=== PATIENT | male | born 1955 | race Caucasian/White ===

== ENCOUNTER 2019-12-22 09:59 | Inpatient (IN) | payer BC ==
[~2019-12-22] VITALS: Ht 172.7 cm; Wt 119.3 kg
[2019-12-22 10:29] LABS: BASOPHILS % (AUTO) 0.3 % (0.0-5.0); EOSINOPHILS % (AUTO) 0.1 % (0.0-8.0); HEMATOCRIT 54.9 % (42-54); LYMPHOCYTES % (AUTO) 6.1 % (21.0-51.0); MEAN CORPUSCULAR HEMOGLOBIN 31.8 pg (27.0-33.0); MEAN CORPUSCULAR HGB CONC 34.6 g/dL (32.0-36.0); MEAN CORPUSCULAR VOLUME 91.8 fL (79-99); MONOCYTES % (AUTO) 7.8 % (3.0-13.0); NEUTROPHILS % (AUTO) 85.1 % (40.0-77.0); PLATELET COUNT (AUTO) 272 K/uL (130-400); RED BLOOD CELL COUNT(AUTO) 5.98 MIL/uL (4.50-6.20)
[2019-12-22] MEDS ORDERED: ALBUTEROL INHALER 90MCG/INH IH ONE (10:32)
[2019-12-22 10:37] LABS: CREATININE 1.2 mg/dL (0.5-1.5); POTASSIUM 4.5 mmol/L (3.5-5.1)
[2019-12-22 10:38] LABS: INR 0.92 (0.85-1.15)
[2019-12-22 11:01] LABS: ALBUMIN 3.9 g/dL (3.5-5.0); BILIRUBIN,TOTAL 0.7 mg/dL (0.2-1.0); TOTAL PROTEIN, SERUM 7.9 g/dL (6.0-8.3)
[2019-12-22 11:02] LABS: APPEARANCE,URINE Clear (CLEAR); BILIRUBIN,URINE Negative (NEGATIVE); COLOR,URINE Yellow (YELLOW); GLUCOSE, URINE (UA) >=1000 mg/dL (NEGATIVE); KETONES,URINE 40 mg/dL (NEGATIVE); LEUKOCYTE ESTERASE ,URINE Negative (NEGATIVE); NITRATE,URINE Negative (NEGATIVE); OCCULT BLOOD,URINE Negative (NEGATIVE); PROTEIN,URINE Negative (NEGATIVE)
[2019-12-22 11:14] LABS: TROPONIN I 3.49 ng/mL (0.00-0.06)
[2019-12-22] MEDS ORDERED: ENOXAPARIN SODIUM 100 MG/1 ML SQ ONE (11:20)
[2019-12-22] MEDS ORDERED: ASPIRIN 325MG EC TAB 325 MG TABLET.DR PO ONE (11:27)
[2019-12-22] MEDS ORDERED: METOPROLOL TARTRATE 1 MG/ML 5ML VIAL IV ONE (11:27)
[2019-12-22] MEDS ORDERED: CLOPIDOGREL BISULFATE 75 MG TAB ONE (11:27)
[2019-12-22 11:38] LABS: BACTERIA,URINE None Seen /HPF (None Seen); RBC,URINE None Seen /HPF (0-1); WBC,URINE None Seen /HPF (0-1)
[2019-12-22 11:39] LABS: SQUAMOUS EPITHELIAL CELL,UR 0-2 /HPF (0-2)
[2019-12-22] MEDS ORDERED: ATORVASTATIN CALCIUM 40 MG TABLET ONE (12:11)
[2019-12-22] MEDS ORDERED: METOPROLOL TARTRATE 25 MG TAB ONE (12:11)
[2019-12-22 12:29] LABS: BASOPHILS % (AUTO) 0.2 % (0.0-5.0); EOSINOPHILS % (AUTO) 0.1 % (0.0-8.0); HEMATOCRIT 51.7 % (42-54); LYMPHOCYTES % (AUTO) 7.1 % (21.0-51.0); MEAN CORPUSCULAR HEMOGLOBIN 31.2 pg (27.0-33.0); MEAN CORPUSCULAR HGB CONC 34.2 g/dL (32.0-36.0); MONOCYTES % (AUTO) 7.9 % (3.0-13.0); NEUTROPHILS % (AUTO) 84.4 % (40.0-77.0); PLATELET COUNT (AUTO) 278 K/uL (130-400); RED BLOOD CELL COUNT(AUTO) 5.68 MIL/uL (4.50-6.20); RED CELL DISTRIBUTION WIDTH 12.1 % (11.0-15.5); WHITE BLOOD COUNT (AUTO) 14.6 K/uL (4.8-10.8)
[2019-12-22 12:36] LABS: CHOLESTEROL 234 mg/dL (<200); HDL CHOLESTEROL 125 mg/dL (29-71); LDL DIRECT 179 mg/dL (0-99); TRIGLYCERIDES 107 mg/dL (30-200)
[2019-12-22] MEDS ORDERED: HEPARIN SODIUM 1000UNIT/ML 10ML VIAL ONE ×2 (13:04→15:50)
[2019-12-22] MEDS ORDERED: IOHEXOL 350 MG/ML 100ML INFUS..BTL IV ONE (13:04)
[2019-12-22] MEDS ORDERED: SODIUM BICARB 50MEQ 50ML VIAL ONE ×5 (13:04→20:47)
[2019-12-22] MEDS ORDERED: NITROGLYCERIN 2 MG/VIAL VIAL IV ONE (13:04)
[2019-12-22] MEDS ORDERED: MEPERIDINE-PF 25 MG/ML SYG ONE (13:05)
[2019-12-22] MEDS ORDERED: IOHEXOL-350 50ML VIAL IV ONE (13:05)
[2019-12-22] MEDS ORDERED: LIDOCAINE HCL 2% 20ML ONE (13:05)
[2019-12-22] MEDS ORDERED: MIDAZOLAM HCL 1 MG/ML 2ML VIAL ONE ×2 (13:05→15:51)
[2019-12-22] MEDS ORDERED: FUROSEMIDE 10 MG/ML 4ML VIAL ONE ×2 (13:47→15:03)
[2019-12-22] MEDS ORDERED: HEPARIN 25000 UNITS/250 ML D5W 250 ML IV ONE (14:04)
[2019-12-22] MEDS ORDERED: MIDAZOLAM HCL 1 MG/ML 2ML VIAL IVP PRN (15:00)
[2019-12-22] MEDS ORDERED: MORPHINE SULFATE 5 MG/ML VIAL IV PRN ×2 (15:00)
[2019-12-22] MEDS ORDERED: ONDANSETRON HCL 4 MG/2 ML VIAL IVP PRN (15:00)
[2019-12-22] MEDS ORDERED: NITROGLYCERIN 1GM/1 INCH PACKET TD SCH (15:00)
[2019-12-22] MEDS ORDERED: SODIUM CHLORIDE 0.9% 500ML 500 ML IV SCH (15:17)
[2019-12-22] MEDS ORDERED: SODIUM CHLORIDE 0.9% 1000ML 1,000 ML IV SCH (15:30)
[2019-12-22] MEDS ORDERED: INSULIN REGULAR, HUMAN 3ML 100 UNIT in SODIUM CHLORIDE 0.9% 99 ML IV SCH ×2 (15:30)
[2019-12-22] MEDS ORDERED: EPINEPHRINE 10 MG in DEXTROSE 5%-WATER 250 ML IV PRN (15:30)
[2019-12-22] MEDS ORDERED: MAGNESIUM 2GM PREMIX 50ML 50 ML IV PRN (15:30)
[2019-12-22] MEDS ORDERED: GLUCAGON 1MG KIT 1 MG ML IM PRN (15:30)
[2019-12-22] MEDS ORDERED: DEXTROSE 50%-WATER 50 ML DISP.SYRIN IV PRN (15:30)
[2019-12-22] MEDS ORDERED: AMINOCAPROIC ACID 15,000 MG in SODIUM CHLORIDE 0.9% 250 ML IV SCH (15:30)
[2019-12-22] MEDS ORDERED: POTASSIUM PHOS 15 mMOL+NS250ML 250 ML IV PRN (15:30)
[2019-12-22] MEDS ORDERED: SODIUM CHLORIDE 0.9% 250 ML IV PRN (15:30)
[2019-12-22] MEDS ORDERED: NOREPINEPHRINE 4MG/NS 250ML 250 ML IV PRN (15:30)
[2019-12-22] MEDS ORDERED: ALBUMIN (HUMAN) 5% 250 ML IV PRN (15:30)
[2019-12-22] MEDS ORDERED: ONDANSETRON HCL 4 MG/2 ML VIAL IV PRN (15:30)
[2019-12-22] MEDS ORDERED: ACETAMINOPHEN 325 MG TAB PO PRN (15:30)
[2019-12-22] MEDS ORDERED: SODIUM CHLORIDE 0.9% 10 ML VIAL IVP PRN (15:30)
[2019-12-22] MEDS ORDERED: TRAMADOL HCL 50 MG TABLET PO PRN ×2 (15:30)
[2019-12-22] MEDS ORDERED: NITROGLYCERIN 50 MG/D5% WATER 250 BOT IV SCH (15:30)
[2019-12-22] MEDS ORDERED: ACETAMINOPHEN 650 MG SUPPOSITORY RC PRN (15:30)
[2019-12-22] MEDS ORDERED: MORPHINE SULFATE 2 MG/ML 1ML SYG IV PRN (15:30)
[2019-12-22] MEDS ORDERED: MORPHINE SULFATE 4 MG/1ML SYG IV PRN (15:30)
[2019-12-22 15:38] LABS: HEMATOCRIT 51.2 % (42-54); MEAN CORPUSCULAR HEMOGLOBIN 31.4 pg (27.0-33.0); MEAN CORPUSCULAR HGB CONC 34.6 g/dL (32.0-36.0); MEAN CORPUSCULAR VOLUME 90.9 fL (79-99); RED BLOOD CELL COUNT(AUTO) 5.63 MIL/uL (4.50-6.20); WHITE BLOOD COUNT (AUTO) 14.5 K/uL (4.8-10.8)
[2019-12-22] MEDS ORDERED: EPINEPHRINE 1 MG/ML 30ML VIAL IJ ONE (15:39)
[2019-12-22] MEDS ORDERED: NITROGLYCERIN 50 MG/D5% WATER 1 BOT ONE (15:39)
[2019-12-22] MEDS ORDERED: AMINOCAPROIC ACID 250 MG/ML 20 ML VIAL IV ONE (15:50)
[2019-12-22] MEDS ORDERED: LIDOCAINE PF 2% 5ML ABBOJECT ONE (15:50)
[2019-12-22] MEDS ORDERED: PROPOFOL 10 MG/ML 20ML VIAL IV ONE (15:50)
[2019-12-22] MEDS ORDERED: PROTAMINE SULFATE 10 MG/ML 25ML VIAL IV ONE (15:50)
[2019-12-22] MEDS ORDERED: ESMOLOL HCL 10 MG/ML 10 ML VIAL ONE (15:50)
[2019-12-22] MEDS ORDERED: EPINEPHRINE 1 MG/ML AMPULE ONE (15:50)
[2019-12-22] MEDS ORDERED: FENTANYL CITRATE PF 50 MCG/1 ML 20ML VIAL IJ ONE (15:50)
[2019-12-22] MEDS ORDERED: NOREPINEPHRINE BITARTRATE 1 MG/1 ML ML IV ONE (15:50)
[2019-12-22] MEDS ORDERED: ROCURONIUM 10MG/1ML SYR 10 MG/ML ML ONE (15:51)
[2019-12-22] MEDS ORDERED: KETAMINE HCL 50MG/ML 10ML VIAL IJ ONE (15:53)
[2019-12-22 15:55] LABS: INR 0.98 (0.85-1.15); PARTIAL THROMBOPLASTIN TIME 33.1 SEC (26.3-35.5); PROTHROMBIN TIME 10.6 SEC (9.6-11.6)
[2019-12-22 15:55] LABS: HEMOGLOBIN A1C 7.3 % (4.0-6.0)
[2019-12-22] MEDS ORDERED: CEFUROXIME SODIUM 1.5 GM VIAL ONE (16:07)
[2019-12-22 16:30] LABS: ABG BASE EXCESS -8.1 mmol/L (-2.0-3.0); ABG HCO3 17.5 mmol/L (21.0-28.0); ABG OXYGEN SATURATION 98.5 % (95.0-99.0); ABG PCO2 37 mmHg (35-48)
[2019-12-22] MEDS ORDERED: CEFAZOLIN SODIUM 1 GM VIAL ONE (16:34)
[2019-12-22] MEDS ORDERED: PAPAVERINE HCL 30 MG/ML 2ML VIAL ONE (16:34)
[2019-12-22 17:22] LABS: ABG BASE EXCESS -6.4 mmol/L (-2.0-3.0); ABG HCO3 19.6 mmol/L (21.0-28.0); ABG PCO2 41 mmHg (35-48)
[2019-12-22] MEDS ORDERED: SODIUM BICARB 8.4% 50ML SYRINGE ONE (17:23)
[2019-12-22 18:31] LABS: ABG BASE EXCESS -9.6 mmol/L (-2.0-3.0); ABG HCO3 16.4 mmol/L (21.0-28.0); ABG OXYGEN SATURATION 98.1 % (95.0-99.0); ABG PCO2 36 mmHg (35-48)
[2019-12-22] MEDS ORDERED: EPHEDRINE SULFATE 50 MG/ML AMPULE ONE (18:56)
[2019-12-22 19:04] VITALS: BP 127/77
[2019-12-22 19:25] LABS: MEAN CORPUSCULAR HEMOGLOBIN 31.5 pg (27.0-33.0); MEAN CORPUSCULAR HGB CONC 33.5 g/dL (32.0-36.0); MEAN CORPUSCULAR VOLUME 94.1 fL (79-99); RED BLOOD CELL COUNT(AUTO) 4.89 MIL/uL (4.50-6.20); RED CELL DISTRIBUTION WIDTH 12.1 % (11.0-15.5); WHITE BLOOD COUNT (AUTO) 28.4 K/uL (4.8-10.8)
[2019-12-22] MEDS ORDERED: PROPOFOL 1000 MG/100 ML 100 ML IV ONE ×2 (19:35→22:23)
[2019-12-22 19:38] LABS: ABG BASE EXCESS -10.3 mmol/L (-2.0-3.0); ABG OXYGEN SATURATION 93.7 % (95.0-99.0); ABG PCO2 48 mmHg (35-48)
[2019-12-22 19:39] LABS: CREATININE 1.5 mg/dL (0.5-1.5); POTASSIUM 3.9 mmol/L (3.5-5.1)
[2019-12-22] MEDS ORDERED: POTASSIUM CHLORIDE 20MEQ/100ML 100 ML IV ONE (19:39)
[2019-12-22 19:42] LABS: MAGNESIUM 1.6 mg/dL (1.80-2.40); PHOSPHORUS 6.8 mg/dL (2.5-4.9)
[2019-12-22 19:45] LABS: INR 1.02 (0.85-1.15); PARTIAL THROMBOPLASTIN TIME 23.6 SEC (26.3-35.5)
[2019-12-22] MEDS ORDERED: NOREPINEPHRINE BITARTRATE 8 MG/NS 250ML IV SCH ×2 (19:45)
[2019-12-22] MEDS: SODIUM BICARB 50MEQ 50ML VIAL IV PRN ×3 (19:53→21:45)
[2019-12-22] MEDS: POTASSIUM CHLORIDE 20MEQ/100ML 100 ML IV PRN (19:54)
[2019-12-22] MEDS ORDERED: MAGNESIUM 2GM PREMIX 50ML 50 ML IV ONE (19:58)
[2019-12-22 20:00] VITALS: BP 91/56
[2019-12-22] MEDS ORDERED: ALBUMIN (HUMAN) 5% 250 ML IV ONE (20:10)
[2019-12-22] MEDS: PROPOFOL 1000 MG/100 ML 100 ML IV PRN (20:17)
[2019-12-22 20:45] LABS: ABG BASE EXCESS -5.6 mmol/L (-2.0-3.0); ABG HCO3 20.8 mmol/L (21.0-28.0); ABG OXYGEN SATURATION 96.4 % (95.0-99.0); ABG PCO2 44 mmHg (35-48)
[2019-12-22] MEDS ORDERED: CALCIUM GLUCONATE 1 GM/10 ML VIAL IV ONE ×2 (20:59→21:40)
[2019-12-22 21:00] VITALS: BP 98/54
[2019-12-22] MEDS ORDERED: FAMOTIDINE/PF 20 MG/2 ML VIAL IV SCH (21:00)
[2019-12-22] MEDS: CALCIUM GLUCONATE 1 GM in SODIUM CHLORIDE 0.9% 50 ML IV PRN ×2 (21:02→21:45)
[2019-12-22 21:30] LABS: ABG BASE EXCESS -1.4 mmol/L (-2.0-3.0); ABG OXYGEN SATURATION 98.1 % (95.0-99.0); ABG PCO2 43 mmHg (35-48)
[2019-12-22] MEDS ORDERED: 1/2 NORMAL SALINE 1,000 ML IV ONE (21:38)
[2019-12-22] MEDS ORDERED: POTASSIUM CHLORIDE 20MEQ/100ML 200 ML IV ONE (21:39)
[2019-12-22] MEDS: FAMOTIDINE/PF 20 MG/2 ML VIAL IV SCH (21:44)
[2019-12-22 22:00] VITALS: BP 101/58
[2019-12-22 22:28] LABS: ABG BASE EXCESS -1.9 mmol/L (-2.0-3.0); ABG HCO3 23.1 mmol/L (21.0-28.0); ABG OXYGEN SATURATION 97.7 % (95.0-99.0); ABG PCO2 40 mmHg (35-48)
[2019-12-22 23:00] VITALS: BP 107/55
[2019-12-23] VITALS (21 sets, daily range): BP systolic 91–166; BP diastolic 51–76
[2019-12-23 00:06] LABS: ABG BASE EXCESS -2.7 mmol/L (-2.0-3.0); ABG HCO3 21.9 mmol/L (21.0-28.0); ABG OXYGEN SATURATION 96.2 % (95.0-99.0); ABG PCO2 38 mmHg (35-48)
[2019-12-23] MEDS ORDERED: POTASSIUM CHLORIDE 20MEQ/100ML 200 ML IV ONE (00:07)
[2019-12-23] MEDS: POTASSIUM CHLORIDE 20MEQ/100ML 100 ML IV PRN ×8 (00:19→15:47)
[2019-12-23] MEDS: SODIUM BICARB 50MEQ 50ML VIAL IV PRN ×2 (00:19→01:26)
[2019-12-23] MEDS ORDERED: CEFAZOLIN SODIUM 1 GM VIAL ONE ×4 (00:22→16:38)
[2019-12-23] MEDS: CEFAZOLIN SODIUM 1 GM VIAL IV SCH ×3 (00:23→18:53)
[2019-12-23] MEDS ORDERED: PROPOFOL 1000 MG/100 ML 100 ML IV ONE (01:04)
[2019-12-23] MEDS ORDERED: POTASSIUM CHLORIDE 20MEQ/100ML 100 ML IV ONE (01:07)
[2019-12-23] MEDS ORDERED: SODIUM CHLORIDE 0.9% 100 ML IV ONE (01:10)
[2019-12-23 01:14] LABS: ABG BASE EXCESS -1.7 mmol/L (-2.0-3.0); ABG HCO3 22.3 mmol/L (21.0-28.0); ABG OXYGEN SATURATION 94.1 % (95.0-99.0); ABG PCO2 36 mmHg (35-48)
[2019-12-23] MEDS ORDERED: CALCIUM GLUCONATE 1 GM/10 ML VIAL IV ONE ×3 (01:29→01:46)
[2019-12-23] MEDS: PROPOFOL 1000 MG/100 ML 100 ML IV PRN ×2 (01:30→05:50)
[2019-12-23 03:00] LABS: ABG BASE EXCESS 2.5 mmol/L (-2.0-3.0); ABG HCO3 26.9 mmol/L (21.0-28.0); ABG OXYGEN SATURATION 94.1 % (95.0-99.0); ABG PCO2 41 mmHg (35-48)
[2019-12-23 05:15] LABS: ABG BASE EXCESS 7.4 mmol/L (-2.0-3.0); ABG HCO3 31.5 mmol/L (21.0-28.0); ABG PCO2 42 mmHg (35-48)
[2019-12-23 05:23] LABS: HEMATOCRIT 38.9 % (42-54); MEAN CORPUSCULAR HGB CONC 34.7 g/dL (32.0-36.0); MEAN CORPUSCULAR VOLUME 92.2 fL (79-99); RED BLOOD CELL COUNT(AUTO) 4.22 MIL/uL (4.50-6.20); RED CELL DISTRIBUTION WIDTH 12.5 % (11.0-15.5); WHITE BLOOD COUNT (AUTO) 21.5 K/uL (4.8-10.8)
[2019-12-23] MEDS: CALCIUM GLUCONATE 1 GM in SODIUM CHLORIDE 0.9% 50 ML IV PRN (05:31)
[2019-12-23 05:37] LABS: ALBUMIN 2.4 g/dL (3.5-5.0); BILIRUBIN,TOTAL 0.7 mg/dL (0.2-1.0); CREATININE 1.5 mg/dL (0.5-1.5); MAGNESIUM 2.1 mg/dL (1.80-2.40); POTASSIUM 3.7 mmol/L (3.5-5.1); TOTAL PROTEIN, SERUM 5.2 g/dL (6.0-8.3)
[2019-12-23 06:06] LABS: INR 0.95 (0.85-1.15); PARTIAL THROMBOPLASTIN TIME 24.9 SEC (26.3-35.5); PROTHROMBIN TIME 10.3 SEC (9.6-11.6)
--- NOTE | 2019-12-23 08:19 | NUR ---
DR NEVAREZ NOTIFIED WITH PT V/S/MEDS/IO'S/STATUS. INFORMED OF COLD RT FOOT WITH NO PULSES. DR FOSTER ALSO AWARE. PLAN TO WEAN TO EXTUBATE-REMOVE IMPELLA LATER THIS AFTERNOON
[2019-12-23] MEDS: FAMOTIDINE/PF 20 MG/2 ML VIAL IV SCH ×2 (08:41→20:29)
--- NOTE | 2019-12-23 08:52 | NUR ---
ATTEMPTED TO WEAN DOWN DIPRIVAN..PT THRASHES IN BED-MOVES ALL EXTREMITIES AT RANDOM. DOES NPOT FOLLOW COMMANDS- PLACED BACK ON PREVIOUS RATE OF DIPRIVAN FOR SAFETY. STILL HAS IMPELLA. HIGH RISK FOR INJURY.
--- NOTE | 2019-12-23 08:55 | NUR ---
DR FOSTER AT BEDSIDE-EXAMINES PT AND HIS RT FOOT
[2019-12-23] MEDS ORDERED: ASPIRIN 81 MG EC TAB PO SCH (09:00)
[2019-12-23 09:38] LABS: ABG BASE EXCESS 8.6 mmol/L (-2.0-3.0); ABG HCO3 31.9 mmol/L (21.0-28.0); ABG OXYGEN SATURATION 96.4 % (95.0-99.0); ABG PCO2 39 mmHg (35-48)
--- NOTE | 2019-12-23 10:13 | NUR ---
Per AshkanRN and GordoRN patient is not ready for skilled Physical Therapy Evaluation today.Patient is intubated. Addendum: 12/23/19 at 1014 by CHIDI LOWE, PT PT Amended: Links added.
--- NOTE | 2019-12-23 11:53 | NUR ---
REATTEMPTED TO WEAN DOWN DIPRIVAN TO 20MCG..PT STILL NOT FOLLOWING COMMANDS AND TRASHES IN BED. STILL HAS IMPELLA AND BENDS AT GROIN IF TRYING TO GET UP. SHAKES HIS HEAD BACK AND FORTH. SEDATION RESUMED AT PREVIOUS RATE FOR SAFETY AND COMFORT.
[2019-12-23 14:33] LABS: ABG BASE EXCESS 3.9 mmol/L (-2.0-3.0); ABG HCO3 27.7 mmol/L (21.0-28.0); ABG OXYGEN SATURATION 95.7 % (95.0-99.0); ABG PCO2 39 mmHg (35-48)
[2019-12-23] MEDS ORDERED: ROCURONIUM 10MG/1ML SYR 10 MG/ML ML ONE ×2 (16:11→17:11)
[2019-12-23] MEDS ORDERED: PHENYLEPHRINE HCL 10 MG/ML 1ML VIAL IV ONE (16:25)
[2019-12-23] MEDS ORDERED: FENTANYL CITRATE PF 50 MCG/1 ML 2ML VIAL ONE (16:58)
[2019-12-23] MEDS ORDERED: ESMOLOL HCL 10 MG/ML 10 ML VIAL ONE (17:00)
--- NOTE | 2019-12-23 20:00 | NUR ---
TITRATING PROPOFOL WEANING PROPOFOL. PT STILL NOT FOLLOWING COMMANDS AND TRASHES IN BED. SHAKES HIS HEAD BACK AND FORTH. SEDATION RESUMED AT PREVIOUS RATE FOR SAFETY AND COMFORT.
[2019-12-23 20:13] LABS: ABG BASE EXCESS 3.6 mmol/L (-2.0-3.0); ABG HCO3 27.7 mmol/L (21.0-28.0); ABG OXYGEN SATURATION 95.8 % (95.0-99.0); ABG PCO2 40 mmHg (35-48)
--- NOTE | 2019-12-23 20:15 | NUR ---
FIO2 AT 50%
--- NOTE | 2019-12-23 21:05 | NUR ---
PLACED ON 40% AEROSOL
[2019-12-23 21:40] LABS: ABG BASE EXCESS 4.6 mmol/L (-2.0-3.0); ABG HCO3 29.6 mmol/L (21.0-28.0); ABG PCO2 45 mmHg (35-48)
--- NOTE | 2019-12-23 21:45 | NUR ---
PT EXTUBATED PT EXTUBATED , PLACED OD 60% AEROSOL
[2019-12-23 23:15] LABS: ABG BASE EXCESS 3.3 mmol/L (-2.0-3.0); ABG HCO3 27.8 mmol/L (21.0-28.0); ABG OXYGEN SATURATION 92.8 % (95.0-99.0); ABG PCO2 42 mmHg (35-48)
[2019-12-24] VITALS (24 sets, daily range): BP systolic 96–146; BP diastolic 43–88
--- NOTE | 2019-12-24 00:14 | NUR ---
PT PLACED TO 50% AEROSOL
[2019-12-24 03:25] LABS: HEMATOCRIT 35.4 % (42-54); MEAN CORPUSCULAR HEMOGLOBIN 31.3 pg (27.0-33.0); MEAN CORPUSCULAR HGB CONC 32.5 g/dL (32.0-36.0); MEAN CORPUSCULAR VOLUME 96.2 fL (79-99); RED BLOOD CELL COUNT(AUTO) 3.68 MIL/uL (4.50-6.20); RED CELL DISTRIBUTION WIDTH 13.1 % (11.0-15.5); WHITE BLOOD COUNT (AUTO) 20.2 K/uL (4.8-10.8)
[2019-12-24 03:36] LABS: ALBUMIN 2.5 g/dL (3.5-5.0); BILIRUBIN,TOTAL 0.8 mg/dL (0.2-1.0); TOTAL PROTEIN, SERUM 5.5 g/dL (6.0-8.3)
--- NOTE | 2019-12-24 05:45 | NUR ---
PLACED ON 40% AEROSOL
[2019-12-24] MEDS ORDERED: FUROSEMIDE 10 MG/ML 2ML VIAL IV SCH (07:30)
[2019-12-24] MEDS: FAMOTIDINE/PF 20 MG/2 ML VIAL IV SCH ×2 (08:21→20:01)
[2019-12-24] MEDS: METOPROLOL TARTRATE 25 MG TAB PO SCH ×2 (08:21→20:01)
[2019-12-24] MEDS: ACETAMINOPHEN 325 MG TAB PO PRN ×3 (13:25→21:58)
--- NOTE | 2019-12-24 13:44 | NUR ---
DC PLAN VISITED WITH PATIENT. DR. PINEDA TALKING TO PATIENT. SPOKE TO NURSE. SAID PATIENT HAD TO GO BACK TO SURGERY AND WAS EXTUBATED THIS MORNING. STILL HAS CHEST TUBES STILL EARLY TO SEE HOW HE WILL DO AND IF OKAY TO GO HOME. SAID TO GIVE HIM A DAY OR TWO. TRIED TO CALL JO ANN AL NO ANSWER TO SEE IF SHE COULD PROVIDE INFO ABOUT PRIOR LEVEL OF FUNCTION. Addendum: 12/24/19 at 1347 by FILEMON DE DIOS RN CM Amended: Links added.
--- NOTE | 2019-12-24 16:00 | NUR ---
DR. NEVAREZ SAW PT. GAVE ORDERS TO D/C A-LINE AND KEEP UNDER ICU CARE.
--- NOTE | 2019-12-24 16:00 | NUR ---
BELONGINGS GIVEN TO PT'S MOTHER, JESUS MIKAELA PER REQUEST OF PT. BELONGINGS INCLUDED WALLET AND CLOTHING.
[2019-12-24] MEDS: INSULIN HUMULIN R 100 UNIT/ML 3ML SQ SCH ×2 (16:30→20:09)
[2019-12-25] VITALS (16 sets, daily range): BP systolic 110–129; BP diastolic 59–77
[2019-12-25] MEDS: ACETAMINOPHEN 325 MG TAB PO PRN ×2 (02:15→07:58)
[2019-12-25 04:43] LABS: MEAN CORPUSCULAR HEMOGLOBIN 31.1 pg (27.0-33.0); MEAN CORPUSCULAR HGB CONC 32.4 g/dL (32.0-36.0); MEAN CORPUSCULAR VOLUME 95.9 fL (79-99); RED BLOOD CELL COUNT(AUTO) 3.44 MIL/uL (4.50-6.20); RED CELL DISTRIBUTION WIDTH 12.4 % (11.0-15.5); WHITE BLOOD COUNT (AUTO) 17.8 K/uL (4.8-10.8)
[2019-12-25 05:02] LABS: ALBUMIN 2.4 g/dL (3.5-5.0); BILIRUBIN,TOTAL 0.8 mg/dL (0.2-1.0); CREATININE 0.9 mg/dL (0.5-1.5); POTASSIUM 3.8 mmol/L (3.5-5.1); TOTAL PROTEIN, SERUM 5.6 g/dL (6.0-8.3)
[2019-12-25] MEDS: INSULIN HUMULIN R 100 UNIT/ML 3ML SQ SCH ×4 (05:18→21:00)
[2019-12-25] MEDS: POTASSIUM CHLORIDE 20MEQ/100ML 100 ML IV PRN (06:50)
[2019-12-25] MEDS: METOPROLOL TARTRATE 25 MG TAB PO SCH (07:59)
[2019-12-25] MEDS: FAMOTIDINE 20MG TAB 20 MG TAB PO SCH ×2 (07:59→19:44)
[2019-12-25] MEDS: FUROSEMIDE 20 MG TABLET PO SCH ×2 (07:59→18:02)
--- NOTE | 2019-12-25 11:29 | NUR ---
DC PLAN VISITED WITH PATIENT. PATIENT LIVES WITH SPOUSE AND 2 SONS. INDEPENDENT ABLE TO PERFORM ADL'S. PATIENT HAS NO SERVICE OR DME'S. FEELS SAFE TO RETURN HOME. Addendum: 12/25/19 at 1131 by FILEMON DE DIOS RN CM Amended: Links added.
[2019-12-25] MEDS: DOCUSATE SODIUM 100 MG CAP PO PRN (18:03)
[2019-12-25] MEDS ORDERED: ATORVASTATIN CALCIUM 40 MG TABLET ONE (19:22)
[2019-12-25] MEDS ORDERED: FAMOTIDINE/PF 20 MG/2 ML VIAL IV ONE (19:22)
[2019-12-25] MEDS ORDERED: METOPROLOL TARTRATE 25 MG TAB ONE (19:23)
[2019-12-25] MEDS: ATORVASTATIN CALCIUM 40 MG TABLET PO SCH (19:44)
[2019-12-25] MEDS: METOPROLOL TARTRATE 50 MG TAB PO SCH (19:46)
[2019-12-26 03:19] LABS: HEMATOCRIT 37.6 % (42-54); MEAN CORPUSCULAR HEMOGLOBIN 31.4 pg (27.0-33.0); MEAN CORPUSCULAR HGB CONC 33.5 g/dL (32.0-36.0); MEAN CORPUSCULAR VOLUME 93.8 fL (79-99); PLATELET COUNT (AUTO) 184 K/uL (130-400); RED BLOOD CELL COUNT(AUTO) 4.01 MIL/uL (4.50-6.20); WHITE BLOOD COUNT (AUTO) 14.1 K/uL (4.8-10.8)
[2019-12-26 03:28] LABS: ALBUMIN 2.4 g/dL (3.5-5.0); BILIRUBIN,TOTAL 0.7 mg/dL (0.2-1.0); CREATININE 0.9 mg/dL (0.5-1.5); POTASSIUM 3.5 mmol/L (3.5-5.1); TOTAL PROTEIN, SERUM 6.2 g/dL (6.0-8.3)
[2019-12-26 03:45] LABS: BAND NEUTROPHILS % (MANUAL) 1 % (0-2); LYMPHOCYTES % (MANUAL) 9 % (22-44); MAN.DIFF COMMENT-IMPRESSION MANUAL DIFFERENTIAL; MONOCYTES % (MANUAL) 5 % (2-9); SEGMENTED NEUTROPHILS % 85 % (40-70)
[2019-12-26] MEDS ORDERED: POTASSIUM CHLORIDE 20 MEQ ERTAB PO ONE (03:59)
[2019-12-26 04:00] VITALS: BP 114/73
[2019-12-26] MEDS ORDERED: LIDOCAINE HCL-MPF 1% 2ML VIAL IJ PRN (04:00)
[2019-12-26] MEDS ORDERED: POTASSIUM CHLORIDE 10% ELIXIR 20 MEQ/15 ML UDCUP PO PRN (04:00)
[2019-12-26] MEDS: POTASSIUM CHLORIDE 20 MEQ ERTAB PO PRN ×2 (04:01→08:33)
[2019-12-26] MEDS: INSULIN HUMULIN R 100 UNIT/ML 3ML SQ SCH ×4 (05:40→21:00)
[2019-12-26 08:27] VITALS: BP 129/73
[2019-12-26] MEDS: FAMOTIDINE 20MG TAB 20 MG TAB PO SCH ×2 (08:30→19:50)
[2019-12-26] MEDS: FUROSEMIDE 20 MG TABLET PO SCH ×2 (08:31→16:36)
[2019-12-26] MEDS: METOPROLOL TARTRATE 50 MG TAB PO SCH ×2 (08:31→19:50)
[2019-12-26] MEDS: ASPIRIN 81MG TAB.CHEW PO SCH (08:32)
--- NOTE | 2019-12-26 10:35 | NUR ---
CHEST TUBES DISCONTINUED PATIENT AMBULATED EARLIER TODAY WITH PHYSICAL THERAPY; MILD WEAKNESS NOTED; CHEST TUBES REMOVED AT THIS TIME; NO COMPLICATIONS NOTED AND NO COMPLAINTS FROM PATIENT AT THIS TIME. WILL CONTINUE TO ASSESS SITE TO ENSURE NO COMPLICATIONS ARISE.
[2019-12-26 11:00] VITALS: BP 115/70
[2019-12-26 16:00] VITALS: BP 112/57
[2019-12-26] MEDS: DOCUSATE SODIUM 100 MG CAP PO PRN ×2 (16:36→22:12)
--- NOTE | 2019-12-26 18:55 | NUR ---
RECEIVED REPORT FROM ALICIA SANCHEZ. PT AWAKE AND ALERT, SITTING ON CHAIR, OXYGEN VIA NC AT 2L AT 95%. PT DENIES ANY PAIN. CALL LIGHT WITHIN REACH.
[2019-12-26 19:47] VITALS: BP 116/67
[2019-12-26] MEDS: ATORVASTATIN CALCIUM 40 MG TABLET PO SCH (19:50)
[2019-12-27] VITALS (7 sets, daily range): BP systolic 116–142; BP diastolic 78–93
--- NOTE | 2019-12-27 00:20 | NUR ---
PT WITH ASSISTANCE TRANSFERRED TO BED. DENIES PAIN. CALL LIGHT WITHIN REACH. BED TO LOWEST LEVEL. SIDE RAILS x2 UP BED ALARM ON.
--- NOTE | 2019-12-27 02:00 | NUR ---
CPAP ON PT BUT PT DOES NOT TOLERATE THE CPAP. PT REMOVED IT.
--- NOTE | 2019-12-27 03:05 | NUR ---
PT UP TO CHAIR, PT NOT TOLERATING LAYING IN BED EVEN WITH THE HOB ELEVATED. REFUSES TO WEAR CPAP. PT FALLS ASLEEP AND WAKES UP GASPING FOR AIR, OXYGEN LEVELS STAY ABOVE 93% WITH 2L VIA NC. CALL LIGHT WITHIN REACH. CHAIR IS LOCKED. DENIES PAIN.
[2019-12-27 05:01] LABS: BASOPHILS % (AUTO) 0.3 % (0.0-5.0); EOSINOPHILS % (AUTO) 1.6 % (0.0-8.0); HEMATOCRIT 37.2 % (42-54); LYMPHOCYTES % (AUTO) 11.2 % (21.0-51.0); MEAN CORPUSCULAR HEMOGLOBIN 30.9 pg (27.0-33.0); MEAN CORPUSCULAR HGB CONC 33.3 g/dL (32.0-36.0); MEAN CORPUSCULAR VOLUME 92.8 fL (79-99); MONOCYTES % (AUTO) 9.5 % (3.0-13.0); NEUTROPHILS % (AUTO) 76.5 % (40.0-77.0); PLATELET COUNT (AUTO) 215 K/uL (130-400); RED BLOOD CELL COUNT(AUTO) 4.01 MIL/uL (4.50-6.20); RED CELL DISTRIBUTION WIDTH 11.9 % (11.0-15.5)
[2019-12-27 05:48] LABS: ALBUMIN 2.3 g/dL (3.5-5.0); BILIRUBIN,TOTAL 0.6 mg/dL (0.2-1.0); CREATININE 0.8 mg/dL (0.5-1.5); MAGNESIUM 2.2 mg/dL (1.80-2.40); PHOSPHORUS 3.1 mg/dL (2.5-4.9); POTASSIUM 3.7 mmol/L (3.5-5.1); TOTAL PROTEIN, SERUM 6.3 g/dL (6.0-8.3)
[2019-12-27] MEDS: INSULIN HUMULIN R 100 UNIT/ML 3ML SQ SCH ×4 (06:15→20:41)
[2019-12-27] MEDS: POTASSIUM CHLORIDE 20 MEQ ERTAB PO PRN ×2 (06:20→07:28)
[2019-12-27] MEDS: CALCIUM GLUCONATE 1 GM in SODIUM CHLORIDE 0.9% 50 ML IV PRN (07:23)
[2019-12-27] MEDS ORDERED: POLYETHYLENE GLYCOL 3350 17 GM POWD.PACK ONE (07:26)
[2019-12-27] MEDS: FUROSEMIDE 20 MG TABLET PO SCH ×2 (07:27→16:15)
[2019-12-27] MEDS: DOCUSATE SODIUM 100 MG CAP PO PRN (07:27)
[2019-12-27] MEDS: ASPIRIN 81MG TAB.CHEW PO SCH (07:27)
[2019-12-27] MEDS: METOPROLOL TARTRATE 50 MG TAB PO SCH ×2 (07:28→20:13)
[2019-12-27] MEDS: FAMOTIDINE 20MG TAB 20 MG TAB PO SCH ×2 (07:30→20:13)
--- NOTE | 2019-12-27 07:35 | NUR ---
UPDATES ABOUT PT'S CONDITION GIVEN TO DR. ARZATE.
[2019-12-27] MEDS ORDERED: POLYETHYLENE GLYCOL 3350 17 GM POWD.PACK PO PRN (08:00)
--- NOTE | 2019-12-27 09:39 | NUR ---
PT AMBULATED IN THE HALLWAYS WITH PHYSICAL THERAPY ON ROOM AIR. O2 SAT DROPPED TO 85%. ASSISTED PATIENT BACK TO CHAIR AND NASAL CANNULA AT 2L APPLIED.
[2019-12-27] MEDS ORDERED: LACTATED RINGERS 1000ML 1,000 ML IV ONE (12:32)
[2019-12-27] MEDS ORDERED: METOPROLOL TARTRATE 1 MG/ML 5ML VIAL IV ONE (18:32)
[2019-12-27] MEDS: ATORVASTATIN CALCIUM 40 MG TABLET PO SCH (20:13)
[2019-12-28 03:15] VITALS: BP 130/81
[2019-12-28] MEDS: INSULIN HUMULIN R 100 UNIT/ML 3ML SQ SCH ×3 (06:21→16:31)
[2019-12-28 07:51] VITALS: BP 138/82
--- NOTE | 2019-12-28 08:00 | NUR ---
AARON DYER DESIGN/ANIMATION INSTRUCTOR FOR [facility] HERE TO SEE PATIENT AND INSTRUCTED PATIENT TO FOLLOW UP WITH DR CMBRIDE ALTHOUGH DR FOSTER DID THE HEART CATHETERIZATION. MAY DISCHARGE HOME ON SAME MEDICATIONS HE'S ON HERE. Addendum: 12/28/19 at 1705 by AMY ANN RN RN Amended: Links added.
[2019-12-28] MEDS: METOPROLOL TARTRATE 50 MG TAB PO SCH (08:42)
[2019-12-28] MEDS: ASPIRIN 81MG TAB.CHEW PO SCH (08:42)
[2019-12-28] MEDS: FAMOTIDINE 20MG TAB 20 MG TAB PO SCH (08:42)
[2019-12-28] MEDS: FUROSEMIDE 20 MG TABLET PO SCH ×2 (08:43→16:30)
[2019-12-28] MEDS: POTASSIUM CHLORIDE 20 MEQ ERTAB PO PRN (08:45)
[2019-12-28] MEDS ORDERED: ENOXAPARIN SODIUM 30 MG/0.3 ML SQ SCH (11:00)
--- NOTE | 2019-12-28 11:00 | NUR ---
DR RODRIGUEZ BY TO SEE PATIENT AND SAW THAT HEART RATE IS A LITTLE ELEVATED AND INCREASED HIS METOPROLOL TO 3 TIMES DAILY AND SAID HE COULD GO HOME LATER IF HEART RATE AND HE DOESN'T NEED OXYGEN. N/C WAS REMOVED AND PLACED ON ROOM AIR. ORDER FOR O2 EVALUATION FOR HOME O2 IF NEEDED. Addendum: 12/28/19 at 1710 by AMY ANN RN RN Amended: Links added.
[2019-12-28 11:49] VITALS: BP 125/74
[2019-12-28] MEDS ORDERED: METOPROLOL TARTRATE 50 MG TAB PO SCH ×2 (13:00→14:00)
--- NOTE | 2019-12-28 16:00 | NUR ---
[facility] CONSULT PATIENT ASSESSED REQUESTED: [facility] RECOMMENDATIONS SUBMITTED AND REPORT GIVEN TO PATIENT'S NURSE. Addendum: 12/29/19 at 0832 by JOIE SHETTY LVN Amended: Links added.
[2019-12-28 16:15] VITALS: BP 120/72
[2019-12-28] MEDS ORDERED: METF-444 PO (17:24)
[2019-12-28] MEDS ORDERED: ROSU10TA28 PO (17:24)
[2019-12-28] MEDS ORDERED: ASPI-1197 PO (17:24)
[2019-12-28] MEDS ORDERED: SITAGLIPTIN PO (17:24)
[2019-12-28] MEDS ORDERED: ERTUGLIFLOZIN PO (17:24)
[2019-12-28] MEDS ORDERED: GLIM4TAB36 PO (17:24)
[2019-12-28] MEDS ORDERED: METO50TA18 PO (17:26)
--- NOTE | 2019-12-28 17:38 | NUR ---
Patient received by RN at 1400. He is cleared by primary team to be discharged home. DC orders placed by airplane pilot supervisor(s) Triston via phone call with Dr. Sanford. Dr. Sanford reviewed med list with Training And Development Coordinator. campus interviews internMalik also assisted with DC documents. Patient informed to follow up with Dr. Sanford tomorrow. No recommendations were made by Cardiology at this time. VSS with no complaints of pain or discomfort. Patient on room air with O2 sats of 97%. Per Dr. Juvenal MD's office will set up home health for patient.
== END 2019-12-28 18:59 | disposition home or self-care (01) | DRG 215 ==
LOC: EDH 09:59 → EDHIP 15:54 → PAH.CVR 19:32 → DAHIP 12-24 16:11
PROVIDERS: ADMIT Internal Medicine; ATTEND Internal Medicine
PROC: 06BQ4ZZ Excision of Left Saphenous Vein, Percutaneous Endoscopic Approach (ICD-10-PCS; 2019-12-22)
PROC: 06BP4ZZ Excision of Right Saphenous Vein, Percutaneous Endoscopic Approach (ICD-10-PCS; 2019-12-22)
PROC: 5A0221D Assistance with Cardiac Output using Impeller Pump, Continuous (ICD-10-PCS; 2019-12-22)
PROC: 4A023N7 Measurement of Cardiac Sampling and Pressure, Left Heart, Percutaneous Approach (ICD-10-PCS; 2019-12-22)
PROC: B2111ZZ Fluoroscopy of Multiple Coronary Arteries using Low Osmolar Contrast (ICD-10-PCS; 2019-12-22)
PROC: 02100Z9 Bypass Coronary Artery, One Artery from Left Internal Mammary, Open Approach (ICD-10-PCS; principal; 2019-12-22 15:54)
PROC: 02HA3RZ Insertion of Short-term External Heart Assist System into Heart, Percutaneous Approach (ICD-10-PCS; 2019-12-22 15:54)
PROC: 021209W Bypass Coronary Artery, Three Arteries from Aorta with Autologous Venous Tissue, Open Approach (ICD-10-PCS; 2019-12-22 15:54)
PROC: 02PA3RZ Removal of Short-term External Heart Assist System from Heart, Percutaneous Approach (ICD-10-PCS; 2019-12-23)
PROC: 04CK0ZZ Extirpation of Matter from Right Femoral Artery, Open Approach (ICD-10-PCS; 2019-12-23)
PROC: B246ZZZ Ultrasonography of Right and Left Heart (ICD-10-PCS; 2019-12-23)
PROC: 04UK0JZ Supplement Right Femoral Artery with Synthetic Substitute, Open Approach (ICD-10-PCS; 2019-12-23)
PROC: 5A09357 Assistance with Respiratory Ventilation, Less than 24 Consecutive Hours, Continuous Positive Airway Pressure (ICD-10-PCS; 2019-12-24)
PROC: 5A09357 Assistance with Respiratory Ventilation, Less than 24 Consecutive Hours, Continuous Positive Airway Pressure (ICD-10-PCS; 2019-12-25)
DX: I21.4 Non-ST elevation (NSTEMI) myocardial infarction (principal); R57.0 Cardiogenic shock; Z68.41 Body mass index [BMI] 40.0-44.9, adult; I50.20 Unspecified systolic (congestive) heart failure; I25.110 Atherosclerotic heart disease of native coronary artery with unstable angina pectoris; Z20.828 Contact with and (suspected) exposure to other viral communicable diseases; J44.9 Chronic obstructive pulmonary disease, unspecified; E78.5 Hyperlipidemia, unspecified; E11.9 Type 2 diabetes mellitus without complications; E66.9 Obesity, unspecified; E78.00 Pure hypercholesterolemia, unspecified; G47.33 Obstructive sleep apnea (adult) (pediatric); I11.0 Hypertensive heart disease with heart failure; I25.5 Ischemic cardiomyopathy; I34.0 Nonrheumatic mitral (valve) insufficiency; J98.4 Other disorders of lung; L89.92 Pressure ulcer of unspecified site, stage 2; R09.02 Hypoxemia; I25.2 Old myocardial infarction; Z79.899 Other long term (current) drug therapy; Z87.891 Personal history of nicotine dependence; Z91.14 Patient's other noncompliance with medication regimen; Z91.19 Patient's noncompliance with other medical treatment and regimen
CPT/HCPCS: 33990; 36415; 71045; 80048; 80053; 80061; 81001; 82330; 82435; 82550; 82803; 82947; 82948; 83036; 83605; 83735; 83874; 83880; 84100; 84132; 84145; 84295; 84484; 85018; 85025; 85027; 85378; 85384; 85610; 85730; 86850; 86900; 86901; 86922; 87040; 87088; 87426; 87804; 93005; 93306; 93458; 94002; 94003; 94150; 94660; 94760; 97039; 99156; 99157; 99291; A4344; A7048; C1729; C1763; C1894; G0378; J0171; J0610; J0690; J0697; J1644; J1650; J1815; J1940; J2001; J2175; J2250; J2370; J2440; J2704; J2720; J3010; J3475; J3480; J3490; J7030; J7040; J7050; J7060; J7120; P9045; Q9967; U0003

== ENCOUNTER → 2020-06-24 | Outpatient (CLI) | payer BC, OTHER ==
[~2020-06-24] MED LIST: ASPI-1197 PO; ERTUGLIFLOZIN PO; GLIM4TAB36 PO; METO50TA18 PO; ROSU10TA28 PO; SITAGLIPTIN PO
== END | disposition home or self-care (01) ==
LOC: RAH 10:31
PROVIDERS: ATTEND Internal Medicine Cardiovascular Disease
DX: I50.22 Chronic systolic (congestive) heart failure (principal)
CPT/HCPCS: 93306; 93356